=== PATIENT | female | born 1975 | race Caucasian/White ===

== ENCOUNTER 2018-08-06 11:38 | Emergency (ER) | payer MEDICAID | END 2018-08-06 13:24 | disposition home or self-care (01) | LOC: E/R 11:38 | DX: J06.9 Acute upper respiratory infection, unspecified (principal); J02.9 Acute pharyngitis, unspecified; M54.9 Dorsalgia, unspecified; R30.0 Dysuria | CPT/HCPCS: 93005; 99283-25 ==